=== PATIENT | female | born 1930 | race Two or more races ===

== ENCOUNTER → 2016-10-17 | Outpatient (CLI) | payer MEDICARE, OTHER ==
[~2016-10-17] VITALS: Ht 152.4 cm; Wt 76.5 kg
[~2016-10-17] MED LIST: ATOR40TA28 PO; BIMA12.5OS OU; CLOP75 PO; DORZ1DRO5 OU; ENAL10 PO; FOLI1 PO; FURO20 PO; GLIP5 PO; INSLAN SQ; LEVO88TA4 PO; LIOT5 PO; MOME17N NASAL; NITR0.4T27 SL; NTP60T TD; PANT40TA25 PO; PROP10 PO; PYRI50TA9 PO; THIA100 PO
[2016-10-17 15:42] VITALS: BP 139/67
== END | disposition home or self-care (01) ==
LOC: SRCNTR 15:24
PROVIDERS: ATTEND Internal Medicine Cardiovascular Disease
DX: E11.9 Type 2 diabetes mellitus without complications (principal); I11.0 Hypertensive heart disease with heart failure; I50.9 Heart failure, unspecified; E78.5 Hyperlipidemia, unspecified; I25.10 Atherosclerotic heart disease of native coronary artery without angina pectoris; I44.7 Left bundle-branch block, unspecified; I48.2 Chronic atrial fibrillation; Z95.5 Presence of coronary angioplasty implant and graft; Z79.4 Long term (current) use of insulin
CPT/HCPCS: 93005; G0463

== ENCOUNTER → 2016-11-19 | Outpatient (CLI) | payer MEDICARE, OTHER ==
[~2016-11-19] VITALS: Ht 157.5 cm; Wt 78.0 kg
[2016-11-19 15:20] VITALS: BP 155/89
== END | disposition home or self-care (01) ==
LOC: SRCNTR 15:18
PROVIDERS: ATTEND Internal Medicine Cardiovascular Disease
DX: I11.0 Hypertensive heart disease with heart failure (principal); I50.9 Heart failure, unspecified; I25.10 Atherosclerotic heart disease of native coronary artery without angina pectoris; M54.5 Low back pain; I48.2 Chronic atrial fibrillation; E11.9 Type 2 diabetes mellitus without complications; E78.5 Hyperlipidemia, unspecified; Z95.5 Presence of coronary angioplasty implant and graft
CPT/HCPCS: G0463

== ENCOUNTER → 2016-12-31 | Outpatient (CLI) | payer MEDICARE, OTHER ==
[~2016-12-31] VITALS: Ht 157.5 cm; Wt 77.5 kg
[~2016-12-31] MED LIST changes: +BUDE0.5A5 NEB; -ENAL10 PO; +ENAL10TA2 PO; +LEVO100 PO; +MULT-1259 PO; -NITR0.4T27 SL; +NITR0.4T50 SL; -PROP10 PO; +PROP10TA73 PO; +TIOT185 IH
[2016-12-31 15:48] VITALS: BP 135/56
== END | disposition home or self-care (01) ==
LOC: SRCNTR 15:39
PROVIDERS: ATTEND Internal Medicine Cardiovascular Disease
DX: E11.9 Type 2 diabetes mellitus without complications (principal); E78.5 Hyperlipidemia, unspecified; I11.0 Hypertensive heart disease with heart failure; I50.9 Heart failure, unspecified; I25.10 Atherosclerotic heart disease of native coronary artery without angina pectoris; I48.2 Chronic atrial fibrillation; Z79.4 Long term (current) use of insulin; Z95.5 Presence of coronary angioplasty implant and graft
CPT/HCPCS: G0463

== ENCOUNTER → 2017-02-13 | Outpatient (CLI) | payer MEDICARE, OTHER ==
[~2017-02-13] VITALS: Ht 157.5 cm; Wt 70.0 kg
[~2017-02-13] MED LIST changes: -BIMA12.5OS OU; -MOME17N NASAL; -NTP60T TD; -PROP10TA73 PO
[2017-02-13 15:31] VITALS: BP 151/74
== END | disposition home or self-care (01) ==
LOC: SRCNTR 15:13
PROVIDERS: ATTEND Internal Medicine Cardiovascular Disease
DX: I11.0 Hypertensive heart disease with heart failure (principal); I50.9 Heart failure, unspecified; I48.2 Chronic atrial fibrillation; I25.10 Atherosclerotic heart disease of native coronary artery without angina pectoris; E78.5 Hyperlipidemia, unspecified; E11.9 Type 2 diabetes mellitus without complications; Z79.4 Long term (current) use of insulin; Z95.5 Presence of coronary angioplasty implant and graft
CPT/HCPCS: 93005; G0463

== ENCOUNTER 2017-02-20 16:24 | Emergency (ER) | payer MEDICARE, OTHER ==
[~2017-02-20] VITALS: Ht 167.6 cm; Wt 73.6 kg
[~2017-02-20 16:24] MED LIST changes: -ATOR40TA28 PO; -BUDE0.5A5 NEB; -LEVO100 PO; -MULT-1259 PO; -TIOT185 IH
[2017-02-20 16:37] LABS: GLUCOSE,POINT OF CARE 224 MG/DL (70-110)
[2017-02-20 17:59] LABS: BASOPHILS % (AUTO) 0.3 % (0.0-2.0); EOSINOPHILS % (AUTO) 3.6 % (1.0-6.0); HEMATOCRIT 26.3 % (36-46); HEMOGLOBIN 9.1 g/dL (12.0-16.0); LYMPHOCYTES # (AUTO) 0.9 K/uL (1.0-4.8); LYMPHOCYTES % (AUTO) 24.9 % (22.0-44.0); MEAN CORPUSCULAR HEMOGLOBIN 32.5 pg (26.0-34.0); MEAN CORPUSCULAR HGB CONC 34.7 G/dL (31.0-37.0); MEAN CORPUSCULAR VOLUME 94 fL (80-100); MONOCYTES # (AUTO) 0.3 K/uL (0.1-1.0); MONOCYTES % (AUTO) 7.7 % (2.0-9.0); NEUTROPHILS # (AUTO) 2.2 K/uL (1.8-7.7); NEUTROPHILS % (AUTO) 63.5 % (40.0-70.0); PLATELET COUNT (AUTO) 165 K/uL (150-450); RED CELL DISTRIBUTION WIDTH 15.3 % (11.5-14.5); WHITE BLOOD COUNT (AUTO) 3.5 K/uL (4.5-11.0)
[2017-02-20 18:14] LABS: PROTHROMBIN TIME 10.6 SEC (9.4-11.6)
[2017-02-20 18:23] LABS: ANION GAP 4 mmol/L (8-16); CALCIUM, TOTAL 8.6 mg/dL (8.8-10.5); CARBON DIOXIDE 28 mmol/L (22-29); CHLORIDE 105 mmol/L (98-107); CREATININE 1.03 mg/dL (0.60-1.30); GLOMERULAR FILTR. RATE CALC 51 mL/min (>60); POTASSIUM 4.5 mmol/L (3.5-5.1); SODIUM SERUM 137 mmol/L (136-145); UREA NITROGEN, BLOOD 24 mg/dL (7-18)
[2017-02-20 18:30] LABS: ALANINE AMINOTRANSFERASE 24 U/L (12-78); ALBUMIN 3.4 g/dL (3.4-5.0); ASPARTATE AMINOTRANSFERASE 16 U/L (15-37); BILIRUBIN,TOTAL 0.4 mg/dL (0.1-1.0); CREATINE KINASE, TOTAL 72 U/L (26-192); TOTAL PROTEIN, SERUM 6.7 g/dL (6.4-8.2)
[2017-02-20 19:08] LABS: B-TYPE NATRIURETIC PEPTIDE 221 pg/mL (0-100)
[2017-02-20 19:08] LABS: GLUCOSE,POINT OF CARE 157 MG/DL (70-110)
[2017-02-20 19:12] LABS: APPEARANCE,URINE CLOUDY (CLEAR); GLUCOSE, URINE (UA) NEGATIVE (NEGATIVE); KETONES,URINE NEGATIVE (NEGATIVE); LEUKOCYTE ESTERASE ,URINE TRACE (NEGATIVE); OCCULT BLOOD,URINE NEGATIVE (NEGATIVE); PH,URINE 5.5 (5.0-8.0); PROTEIN,URINE NEGATIVE (NEGATIVE)
[2017-02-20 19:21] LABS: ADD UA MICROSCOPIC YES; RBC,URINE None Seen /HPF (0-2); SQUAMOUS EPITHELIAL CELL,UR Many /LPF (None Seen); WBC,URINE 0-2 /HPF (0-5)
[2017-02-20 19:57] VITALS: BP 177/79
[2017-02-25] MEDS ORDERED: BUDE0.5A5 NEB (16:05)
[2017-02-25] MEDS ORDERED: TIOT185 IH (16:05)
[2017-02-25] MEDS ORDERED: LEVO100 PO (16:05)
[2017-02-25] MEDS ORDERED: ATOR40TA28 PO (16:05)
[2017-02-25] MEDS ORDERED: MULT-1259 PO (16:05)
== END 2017-02-20 20:05 | disposition home or self-care (01) ==
LOC: EMS 16:30
DX: R07.9 Chest pain, unspecified (principal); F41.9 Anxiety disorder, unspecified; D64.9 Anemia, unspecified; I11.0 Hypertensive heart disease with heart failure; I50.9 Heart failure, unspecified; E11.9 Type 2 diabetes mellitus without complications; E78.00 Pure hypercholesterolemia, unspecified; K21.9 Gastro-esophageal reflux disease without esophagitis; Z88.5 Allergy status to narcotic agent; Z79.4 Long term (current) use of insulin
CPT/HCPCS: 82962; 93005; 99285

== ENCOUNTER → 2017-02-20 | Outpatient (CLI) | payer MEDICARE, OTHER | END | disposition home or self-care (01) | LOC: RADPV 15:05 | PROVIDERS: ATTEND Internal Medicine Cardiovascular Disease | DX: I08.3 Combined rheumatic disorders of mitral, aortic and tricuspid valves (principal); I86.8 Varicose veins of other specified sites | CPT/HCPCS: 93306 ==

== ENCOUNTER → 2017-02-25 | Outpatient (CLI) | payer MEDICARE, OTHER ==
[~2017-02-25] VITALS: Ht 157.5 cm; Wt 79.0 kg
[~2017-02-25] MED LIST changes: +ATOR40TA28 PO; +BUDE0.5A5 NEB; +LEVO100 PO; +MULT-1259 PO; +TIOT185 IH
[2017-02-25 15:51] VITALS: BP 133/65
== END | disposition home or self-care (01) ==
LOC: SRCNTR 15:33
PROVIDERS: ATTEND Internal Medicine Cardiovascular Disease
DX: I10 Essential (primary) hypertension (principal); I25.10 Atherosclerotic heart disease of native coronary artery without angina pectoris; E11.9 Type 2 diabetes mellitus without complications; E78.5 Hyperlipidemia, unspecified; F41.9 Anxiety disorder, unspecified; Z79.4 Long term (current) use of insulin; Z88.5 Allergy status to narcotic agent; Z95.0 Presence of cardiac pacemaker
CPT/HCPCS: G0463